=== PATIENT | female | born 1995 | race Caucasian/White ===

== ENCOUNTER 2019-06-11 17:46 | Emergency (ER) | payer SELFPAY ==
[~2019-06-11] VITALS: Ht 162.6 cm; Wt 45.4 kg
[2019-06-11] MEDS ORDERED: MORPHINE SULFATE 4 MG/ML VIAL. IV/SQ PRN (18:15)
--- NOTE | 2019-06-11 18:18 | PHYS DOC ---
Adult General Chief Complaint Chief Complaint: PELVIC PAIN HPI HPI Patient is a 23-year-old female who presents with complaint of right lower quadrant abdominal pain that started a couple of days ago. Patient states the p ain is progressively worsening with time. She denies any vomiting or diarrhea. She states that her last bowel movement was yesterday and that was normal. She is not sure whether or not she is been running a fever but states that she has been having some hot spells as well as chills. She states that the pain is worsened with palpation and with movement. She does indicate that she has had decreased appetite since pain onset. She states that nothing is improving her pain. She describes pain as sharp in nature.[] Review of Systems Review of Systems Constitutional: Complains of chills [] Respiratory: Denies cough or shortness of breath [] Cardiovascular: No additional information not addressed in HPI [] GI: Complains of right lower quadrant abdominal pain without vomiting or diarrhea [] : Denies dysuria or hematuria [] Neurologic: Denies headache, focal weakness or sensory changes [] All other systems were reviewed and found to be within normal limits, except as documented in this note. Current Medications Current Medications Current Medications Medications (Trade) Dose Ordered Sig/Foster Start Time Stop Time Status Last Admin Dose Admin Info (CONTRAST GIVEN -- Rx MONITORING) 1 each PRN DAILY PRN 06/11/19 18:30 06/13/19 18:29 Iohexol (Omnipaque 240 Mg/ml) 50 ml 1X ONCE 06/11/19 19:00 06/11/19 19:01 DC 06/11/19 18:33 50 ML Iohexol (Omnipaque 300 Mg/ml) 75 ml 1X ONCE 06/11/19 19:00 06/11/19 19:01 DC 06/11/19 19:33 75 ML Morphine Sulfate (Morphine Sulfate) 4 mg PRN Q15MIN PRN 06/11/19 18:15 06/12/19 18:14 06/11/19 18:42 4 MG Ondansetron HCl (Zofran) 4 mg 1X ONCE 06/11/19 18:30 06/11/19 18:31 DC 06/11/19 18:42 4 MG Sodium Chloride 1,000 ml @ 1,000 mls/hr Q1H 06/11/19 18:30 06/11/19 19:29 DC 06/11/19 18:30 1,000 MLS/HR Allergies Allergies Allergies Coded Allergies Type Severity Reaction Last Updated Verified No Known Drug Allergies 06/11/19 No Physical Exam Physical Exam Constitutional: Well developed, well nourished, in mild distress, non-toxic appearance. [] HENT: Normocephalic, atraumatic, bilateral external ears normal, oropharynx moist, no oral exudates, nose normal. [] Eyes: PERRLA, EOMI, conjunctiva normal, no discharge. [] Neck: Normal range of motion, no tenderness, supple, no stridor. [] Cardiovascular: Regular rate and rhythm[] Lungs & Thorax: Bilateral breath sounds clear to auscultation [] Abdomen: Bowel sounds normal, soft, with moderate right lower quadrant tenderness. Positive rebound. [] Skin: Warm, dry, no erythema, no rash. [] Extremities: No tenderness, no cyanosis, no clubbing, ROM intact, no edema. [] Neurologic: Alert and oriented X 3, no focal deficits noted. [] Current Patient Data Vital Signs Vital Signs Date Time Temp Pulse Resp B/P (MAP) Pulse Ox O2 Delivery O2 Flow Rate FiO2 06/11/19 20:05 77 15 112/59 (76) 99 Room Air 06/11/19 18:00 98.3 98.3 Lab Values Laboratory Tests Test 06/11/19 18:00 06/11/19 18:02 06/11/19 18:25 Urine Collection Type Unknown Urine Color Yellow Urine Clarity Clear Urine pH 8.0 Urine Specific [place] 1.020 Urine Protein Negative mg/dL (NEG-TRACE) Urine Glucose (UA) Negative mg/dL (NEG) Urine Ketones (Stick) Negative mg/dL (NEG) Urine Blood Negative (NEG) Urine Nitrite Negative (NEG) Urine Bilirubin Negative (NEG) Urine Urobilinogen Dipstick 0.2 mg/dL (0.2 mg/dL) Urine Leukocyte Esterase Small (NEG) Urine RBC 0 /HPF (0-2) Urine WBC 20-40 /HPF (0-4) Urine Squamous Epithelial Cells Many /LPF Urine Transitional Epithelial Cells Few /LPF Urine Amorphous Sediment Present /HPF Urine Bacteria 0 /HPF (0-FEW) Urine Mucus Marked /LPF POC Urine HCG, Qualitative Hcg negative (Negative) White Blood Count 11.0 x10^3/uL (4.0-11.0) Red Blood Count 4.00 x10^6/uL (3.50-5.40) Hemoglobin 12.7 g/dL (12.0-15.5) Hematocrit 37.3 % (36.0-47.0) Mean Corpuscular Volume 93 fL (79-100) Mean Corpuscular Hemoglobin 32 pg (25-35) Mean Corpuscular Hemoglobin Concent 34 g/dL (31-37) Red Cell Distribution Width 11.9 % (11.5-14.5) Platelet Count 305 x10^3/uL (140-400) Neutrophils (%) (Auto) 76 % (31-73) H Lymphocytes (%) (Auto) 14 % (24-48) L Monocytes (%) (Auto) 9 % (0-9) Eosinophils (%) (Auto) 0 % (0-3) Basophils (%) (Auto) 0 % (0-3) Neutrophils # (Auto) 8.4 x10^3/uL (1.8-7.7) H Lymphocytes # (Auto) 1.5 x10^3/uL (1.0-4.8) Monocytes # (Auto) 1.0 x10^3/uL (0.0-1.1) Eosinophils # (Auto) 0.0 x10^3/uL (0.0-0.7) Basophils # (Auto) 0.0 x10^3/uL (0.0-0.2) Sodium Level 141 mmol/L (136-145) Potassium Level 3.5 mmol/L (3.5-5.1) Chloride Level 103 mmol/L (98-107) Carbon Dioxide Level 27 mmol/L (21-32) Anion Gap 11 (6-14) Blood Urea Nitrogen 6 mg/dL (7-20) L Creatinine 0.8 mg/dL (0.6-1.0) Estimated GFR (Cockcroft-Gault) 87.4 BUN/Creatinine Ratio 8 (6-20) Glucose Level 88 mg/dL (70-99) Calcium Level 8.9 mg/dL (8.5-10.1) Total Bilirubin 0.8 mg/dL (0.2-1.0) Aspartate Amino Transferase (AST) 9 U/L (15-37) L Alanine Aminotransferase (ALT) 8 U/L (14-59) L Alkaline Phosphatase 80 U/L (46-116) Total Protein 7.6 g/dL (6.4-8.2) Albumin 3.4 g/dL (3.4-5.0) Albumin/Globulin Ratio 0.8 (1.0-1.7) L Lipase 50 U/L (73-393) L Laboratory Tests 06/11/19 18:25 Laboratory Tests 06/11/19 18:25 EKG EKG [] Radiology/Procedures Radiology/Procedures [] Impressions: PROCEDURE: CT ABD PELV W/ORAL&IV CONTRAST PQRS Compliance statement: One or more of the following individualized dose reduction techniques were utilized for this examination: 1. Automated exposure control. 2. Adjustment of the mA and/or kV according to patient size. 3. Use of iterative reconstruction technique. Indication:Right lower quadrant abdominal pain. TECHNIQUE: CT abdomen and pelvis with IV contrast with multiplanar reformats. COMPARISON: None FINDINGS: Heart is normal in size. No pericardial or pleural effusion. 5 mm nodule in the right lower lobe (series 2 image 5). Liver, spleen, gallbladder, pancreas, adrenals and kidneys are within normal limits. Trace amount of free pelvic fluid. No ascites. No enlarged retroperitoneal or pelvic adenopathy. No bowel obstruction. Appendix is not visualized. Mild right lower quadrant inflammatory changes. Stranding densities are also seen in the pelvic fat. Uterus is present. Prominent right ovary with multiple low attenuating lesions likely follicles or cysts. Urinary bladder demonstrates no radiopaque stone. No pneumoperitoneum. No suspicious bony lesion. IMPRESSION: 1. No bowel obstruction. Appendix not visualized. 2. Inflammatory changes in the pelvic and right lower quadrant fat may be secondary to pelvic inflammatory disease. Correlate with history and physical exam. 3. Prominent right ovary with multiple attenuating lesions which may be dominant follicles or cysts. Ultrasound of the pelvis recommended for further evaluation. 4. Right lower lobe nodule (5 mm). Follow-up CT chest in one year recommended. Electronically signed by: Chet Colby DO (06/11/2019 7:53 PM) [facility] PROCEDURE: TRANSVAGINAL INDICATION: Right ovarian cyst on prior CT. Last menstrual period was 05/12/2019. COMPARISON: None available. TECHNIQUE: Endovaginal sonography was performed FINDINGS: The uterus measures 8.2 x 4.1 x 3.6 cm. The endometrium measures 0.8 cm on endovaginal images. There is no focal myometrial abnormality The right ovary measures 6.6 x 4.4 x 4.5 cm on endovaginal images. Multiple complex cystic structures are seen within the right ovary. For example a 4.5 x 4.4 x 2.5 cm cystic structure is seen with internal echoes, possibly hemorrhagic cyst. Flow seen to the right ovary. The left ovary measures 2.9 x 1.7 x 2.2 cm cm on endovaginal images. Flow seen to the left ovary. There is trace free fluid. IMPRESSION: 1. Small complex cystic structures are seen within the right ovary measuring up to 4.5 cm, although these may represent hemorrhagic cysts or follicles, follow-up ultrasound in 6 weeks is recommended. 2. No evidence for ovarian torsion. 3. Trace free fluid, possibly physiologic. Electronically signed by: Emeka Villarreal MD (06/11/2019 10:03 PM) [facility] Course & Med Decision Making Course & Med Decision Making Pertinent Labs and Imaging studies reviewed. (See chart for details) [] Dragon Disclaimer Dragon Disclaimer This electronic medical record was generated, in whole or in part, using a voice recognition dictation system. Departure Departure Impression: Primary Impression: Hemorrhagic ovarian cyst Disposition: 01 HOME, SELF-CARE Condition: STABLE Referrals: GEORGE MCCANN Jr, MD Patient Instructions: Ovarian Cyst Additional Instructions: Recommend follow-up with [facility] and repeat ultrasound in 6 weeks for repeat evaluation of cystic structure. Scripts Ondansetron Hcl (ZOFRAN) 4 Mg Tablet 4 MG PO PRN TID PRN for NAUSEA, #15 TAB nausea/vomiting Prov: ANIA WEST Jr. DO 06/11/19 Oxycodone/Apap 5-325 (PERCOCET 5-325 MG TABLET ) 1 Each Tablet 1 EACH PO Q6HRS PRN for PAIN, #12 TAB pain Prov: ANIA WEST Jr. DO 06/11/19 ANIA WEST Jr. DO Jun 11, 2019 18:18
[2019-06-11 18:21] LABS: BILIRUBIN,URINE NEGATIVE (NEG); CLARITY,URINE CLEAR; COLOR,URINE YELLOW; NITRITE,URINE NEGATIVE (NEG); PROTEIN,URINE NEGATIVE (NEG-TRACE); UROBILINOGEN,URINE 0.2 mg/dL (0.2 mg/dL)
[2019-06-11 18:27] LABS: SQUAMOUS EPITHELIAL CELL,UR MANY /LPF
[2019-06-11 18:28] LABS: AMORPHOUS SEDIMENT,UR PRESENT /HPF; BACTERIA,URINE 0 /HPF (0-FEW); RBC,URINE 0 /HPF (0-2); WBC,URINE 20-40 /HPF (0-4)
[2019-06-11] MEDS ORDERED: IV NORMAL SALINE 1000ML BAG 1,000 ML IV SCH (18:30)
[2019-06-11] MEDS ORDERED: ONDANSETRON PF 4 MG/2 ML VIAL. IV ONE (18:30)
[2019-06-11] MEDS ORDERED: CONTRAST GIVEN. MC PRN (18:30)
[2019-06-11 18:31] LABS: BASO % 0 % (0-3); EOS % 0 % (0-3); HEMATOCRIT 37.3 % (36.0-47.0); HEMOGLOBIN 12.7 g/dL (12.0-15.5); LYMPH # 1.5 x10^3/uL (1.0-4.8); LYMPH % 14 % (24-48); MEAN CORPUSCULAR HEMOGLOBIN 32 pg (25-35); MEAN CORPUSCULAR HGB CONC 34 g/dL (31-37); MEAN CORPUSCULAR VOLUME 93 fL (79-100); MONO % 9 % (0-9); NEUT # 8.4 x10^3/uL (1.8-7.7); NEUT % 76 % (31-73); PLATELET COUNT 305 x10^3/uL (140-400); RED CELL DISTRIBUTION WIDTH 11.9 % (11.5-14.5)
[2019-06-11 18:39] LABS: CALCIUM 8.9 mg/dL (8.5-10.1); CREATININE 0.8 mg/dL (0.6-1.0); GFR 87.4; POTASSIUM 3.5 mmol/L (3.5-5.1)
[2019-06-11 18:44] LABS: ALBUMIN 3.4 g/dL (3.4-5.0); ALBUMIN/GLOBULIN RATIO 0.8 (1.0-1.7); TOTAL BILIRUBIN 0.8 mg/dL (0.2-1.0); TOTAL PROTEIN 7.6 g/dL (6.4-8.2)
[2019-06-11] MEDS ORDERED: IOHEXOL 240 MG/ML 50ML VIAL. PO ONE (19:00)
[2019-06-11] MEDS ORDERED: IOHEXOL 300 MG/ML 100ML VIAL. IV ONE (19:00)
--- NOTE | 2019-06-11 19:56 | RAD ---
PQRS Compliance statement: One or more of the following individualized dose reduction techniques were utilized for this examination: 1. Automated exposure control. 2. Adjustment of the mA and/or kV according to patient size. 3. Use of iterative reconstruction technique. Indication:Right lower quadrant abdominal pain. TECHNIQUE: CT abdomen and pelvis with IV contrast with multiplanar reformats. COMPARISON: None FINDINGS: Heart is normal in size. No pericardial or pleural effusion. 5 mm nodule in the right lower lobe (series 2 image 5). Liver, spleen, gallbladder, pancreas, adrenals and kidneys are within normal limits. Trace amount of free pelvic fluid. No ascites. No enlarged retroperitoneal or pelvic adenopathy. No bowel obstruction. Appendix is not visualized. Mild right lower quadrant inflammatory changes. Stranding densities are also seen in the pelvic fat. Uterus is present. Prominent right ovary with multiple low attenuating lesions likely follicles or cysts. Urinary bladder demonstrates no radiopaque stone. No pneumoperitoneum. No suspicious bony lesion. IMPRESSION: 1. No bowel obstruction. Appendix not visualized. 2. Inflammatory changes in the pelvic and right lower quadrant fat may be secondary to pelvic inflammatory disease. Correlate with history and physical exam. 3. Prominent right ovary with multiple attenuating lesions which may be dominant follicles or cysts. Ultrasound of the pelvis recommended for further evaluation. 4. Right lower lobe nodule (5 mm). Follow-up CT chest in one year recommended. Electronically signed by: Chet Colby DO (06/11/2019 7:53 PM) [facility]
--- NOTE | 2019-06-11 22:06 | RAD ---
INDICATION: Right ovarian cyst on prior CT. Last menstrual period was 05/12/2019. COMPARISON: None available. TECHNIQUE: Endovaginal sonography was performed FINDINGS: The uterus measures 8.2 x 4.1 x 3.6 cm. The endometrium measures 0.8 cm on endovaginal images. There is no focal myometrial abnormality The right ovary measures 6.6 x 4.4 x 4.5 cm on endovaginal images. Multiple complex cystic structures are seen within the right ovary. For example a 4.5 x 4.4 x 2.5 cm cystic structure is seen with internal echoes, possibly hemorrhagic cyst. Flow seen to the right ovary. The left ovary measures 2.9 x 1.7 x 2.2 cm cm on endovaginal images. Flow seen to the left ovary. There is trace free fluid. IMPRESSION: 1. Small complex cystic structures are seen within the right ovary measuring up to 4.5 cm, although these may represent hemorrhagic cysts or follicles, follow-up ultrasound in 6 weeks is recommended. 2. No evidence for ovarian torsion. 3. Trace free fluid, possibly physiologic. Electronically signed by: Emeka Villarreal MD (06/11/2019 10:03 PM) [facility]
[2019-06-11] MEDS ORDERED: ONDA4TAB7 PO (22:13)
[2019-06-11] MEDS ORDERED: OXYC1TAB15 PO (22:13)
[2019-06-11] MEDS ORDERED: oxyCODONE/APAP 5/325 1 TAB TABLET PO ONE (22:30)
[2019-06-11 22:55] VITALS: BP 125/64
== END 2019-06-11 22:55 | disposition home or self-care (01) ==
LOC: ER 17:46
DX: N83.201 Unspecified ovarian cyst, right side (principal)
CPT/HCPCS: 36415; 74177; 76830; 80053; 81001; 81025; 83690; 85025; 87086; 96374; 96375; 99285; J2270; J2405; J7030; Q9966; Q9967

== ENCOUNTER 2019-08-12 09:57 | Emergency (ER) | payer SELFPAY ==
[~2019-08-12] VITALS: Ht 162.6 cm; Wt 45.4 kg
[~2019-08-12 09:57] MED LIST: ONDA4TAB7 PO; OXYC1TAB15 PO
[2019-08-12 10:24] VITALS: BP 140/59
[2019-08-12] MEDS ORDERED: ACETAMINOPHEN 500 MG TABLET PO ONE (11:00)
[2019-08-12 11:05] LABS: INFLUENZA A PATIENT NEGATIVE (NEGATIVE); INFLUENZA B PATIENT NEGATIVE (NEGATIVE)
--- NOTE | 2019-08-12 11:07 | PHYS DOC ---
Past Medical History Past Medical History: No Pertinent History Past Surgical History: No Surgical History Alcohol Use: Occasionally Drug Use: None Adult General Chief Complaint Chief Complaint: HEADACHE HPI HPI Patient is a 23 year old female who presents to emergency department with complaints of a fever, headache, chills, and body aches that began yesterday. She denies any nasal congestion, sore throat, ear pain, cough, shortness of breath, nausea, vomiting, diarrhea, rash, abdominal pain, dysuria, increased urinary frequency, or hematuria. Patient denies any shortness of breath or wheezing. She states that she feels extremely tired. Currently she rates her discomfort an 8 out of 10 on pain scale, she denies any alleviating or exacerbating factors. All other ROS is neg unless otherwise noted in HPI. Review of Systems Review of Systems See Above Current Medications Current Medications Current Medications Medications (Trade) Dose Ordered Sig/Foster Start Time Stop Time Status Last Admin Dose Admin Acetaminophen (Tylenol) 1,000 mg 1X ONCE 08/12/19 11:00 08/12/19 11:01 DC 08/12/19 11:08 1,000 MG Allergies Allergies Allergies Coded Allergies Type Severity Reaction Last Updated Verified No Known Drug Allergies 06/11/19 No Physical Exam Physical Exam See Above Constitutional: Well developed, well nourished, no acute distress, ill appearance. [] HENT: Normocephalic, atraumatic, bilateral external ears normal, bilateral TMs normal, posterior pharynx normal, halitosis present, oropharynx moist, no oral exudates, nose normal. [] Eyes: PERRLA, EOMI, conjunctiva injected bilaterally, no discharge. [] Neck: Normal range of motion, no tenderness, supple, no stridor. [] Cardiovascular:Heart rate regular rhythm, no murmur [] Lungs & Thorax: Bilateral breath sounds clear to auscultation, Respirations even and unlabored, no retractions, no respiratory distress [] Skin: Flushed, hot, dry, no rash Back: No tenderness Extremities: No cyanosis, ROM intact, no edema. [] Neurologic: Alert and oriented X 3, no focal deficits noted. [] Psychologic: Affect normal, judgement normal, mood normal. [] Current Patient Data Vital Signs Vital Signs Date Time Temp Pulse Resp B/P (MAP) Pulse Ox O2 Delivery O2 Flow Rate FiO2 08/12/19 10:24 100.2 112 18 140/59 (86) 98 Room Air 100.2 Lab Values Laboratory Tests Test 08/12/19 10:22 Influenza Type A Antigen Negative (NEGATIVE) Influenza Type B Antigen Negative (NEGATIVE) EKG EKG [] Radiology/Procedures Radiology/Procedures [] Course & Med Decision Making Course & Med Decision Making Pertinent Labs and Imaging studies reviewed. (See chart for details) [] Dragon Disclaimer Dragon Disclaimer This electronic medical record was generated, in whole or in part, using a voice recognition dictation system. Departure Departure Impression: Primary Impression: Fever Additional Impression: Flu-like symptoms Disposition: HOME, SELF-CARE Condition: STABLE Referrals: NO PCP (PCP) Patient Instructions: Fever, Adult, [id number], Influenza, Adult, [id number] Additional Instructions: Alternate Tylenol or ibuprofen as needed for pain/fever. Increase clear fluids and rest. Follow-up with your primary care doctor if symptoms persist, return to the ER if symptoms worsen. Problem Qualifiers Primary Impression: Fever Fever type: unspecified Qualified Codes: R50.9 - Fever, unspecified EWA FRANCIS BRIQUETTE OPERATOR Aug 12, 2019 11:07
== END 2019-08-12 11:22 | disposition home or self-care (01) ==
LOC: ER 09:57
DX: R50.9 Fever, unspecified (principal); R51 Headache; R52 Pain, unspecified
CPT/HCPCS: 87804; 99284